=== PATIENT | male | born 1950 | race Caucasian/White ===

== ENCOUNTER 2017-07-03 10:59 | Emergency (ER) | payer OTHER ==
[~2017-07-03] VITALS: Ht 165.1 cm; Wt 68.0 kg
[2017-07-03 11:00] VITALS: BP_SYST 113
--- NOTE | 2017-07-03 11:01 | NUR ---
Patient to ER bed 8 to gown for evaluation. Side rails up. Report received from NICO Perez.
--- NOTE | 2017-07-03 11:03 | NUR ---
Pt was brought in by ALS, s/p fall in parking lot of [employer]. Per paramedics, pt fell and had a laceration to bottom lip. Unknown loss of consciousness, when pt was asked, pt was unable to recall. Bleeding noted. No other injuries/complaints per patient or noted.
--- NOTE | 2017-07-03 11:05 | NUR ---
ER Dr. Mendieta at bedside examining patient.
[2017-07-03] MEDS ORDERED: LIDOCAINE 1% 10 MG/ML, 20 ML MDV INJ ONE (11:45)
--- NOTE | 2017-07-03 12:12 | NUR ---
Pt went to radiology in stable condition.
--- NOTE | 2017-07-03 12:26 | NUR ---
Pt returned from radiology in stable condition.
--- NOTE | 2017-07-03 12:36 | NUR ---
Patient has a 1 cm laceration to lower lip. Dr. Mendieta applied sutures using sterile technique. Edges well approximated. Site cleansed with normal saline and betadine. No bleeding noted. Pt tolerated well.
--- NOTE | 2017-07-03 13:02 | NUR ---
Called patient's family member to last picker patient for discharge, no answer.
--- NOTE | 2017-07-03 13:04 | NUR ---
Called another family member in regards to picking up patient for discharge. No answer, left voicemail.
--- NOTE | 2017-07-03 14:02 | NUR ---
Pt resting comfortably in hospital bed. No acute distress. Will continue to monitor.
--- NOTE | 2017-07-03 15:00 | NUR ---
Pt was able to get a hold of his friend to pick him up for discharge. ETA 20 minutes.
[2017-07-03 15:33] VITALS: BP_SYST 108
--- NOTE | 2017-07-03 15:33 | NUR ---
Patient given written and verbal discharge instructions and verbalizes understanding. ER MD discussed with patient the results and treatment provided. Patient in stable condition. ID arm band removed. Rx of Motrin given. Patient educated on pain management and to follow up with PMD. Pain Scale 0. Opportunity for questions provided and answered. Medication side effect fact sheet provided.
== END 2017-07-03 15:33 | disposition home or self-care (01) ==
LOC: SED 10:59
DX: S01.511A Laceration without foreign body of lip, initial encounter (principal); S09.90XA Unspecified injury of head, initial encounter; W01.0XXA Fall on same level from slipping, tripping and stumbling without subsequent striking against object, initial encounter; Y93.89 Activity, other specified; Y92.009 Unspecified place in unspecified non-institutional (private) residence as the place of occurrence of the external cause; Y99.8 Other external cause status
CPT/HCPCS: 12011; 70450; 70486; 72125; 99284; J2001